=== PATIENT | female | born 1970 | race Caucasian/White ===

== ENCOUNTER 2020-11-18 08:52 | Emergency (ER) | payer BC, OTHER ==
[~2020-11-18] VITALS: Ht 157.5 cm; Wt 73.4 kg
[~2020-11-18 08:52] MED LIST: BUPR150T8 PO; CETI-90 PO; CHOL10002 PO; CYAN100019 PO; DIPH25CA83 PO; FLUO20CA39 PO; HYDR-4353 PO; IBUP-1984 PO; OMEG1CAP PO; OMEP20CA15 PO
[2020-11-18] MEDS ORDERED: ketorolac tromethamine 15mg/ml inj. IV ONE (09:25)
[2020-11-18 09:54] LABS: BASOPHILS % (AUTO) 0.3 % (0-1); EOSINOPHILS # (AUTO) 0.3 X10'3 (0-0.9); EOSINOPHILS % (AUTO) 3.7 % (0-6); HEMATOCRIT 39.6 % (35.0-45.0); HEMOGLOBIN 13.6 g/dl (12.0-16.0); LYMPHOCYTES # (AUTO) 1.4 X10'3 (1.1-4.8); LYMPHOCYTES % (AUTO) 19.5 % (21-51); MEAN CORPUSCULAR HEMOGLOBIN 31.8 PG (27.0-31.0); MEAN CORPUSCULAR HGB CONC 34.4 g/dL (33.0-36.5); MEAN CORPUSCULAR VOLUME 92.4 FL (78-98); MEAN PLATELET VOLUME 8.3 FL (7.4-10.4); MONOCYTES # (AUTO) 0.5 X10'3 (0-0.9); MONOCYTES % (AUTO) 6.9 % (2-12); NEUTROPHILS % (AUTO) 69.6 % (42-75); PLATELET COUNT 174 X10'3 (140-440); RED BLOOD COUNT 4.29 X10'6 (4.20-5.60); RED CELL DISTRIBUTION WIDTH 12.6 % (11.5-14.5); WHITE BLOOD COUNT 7.1 X10'3 (4.5-11.0)
[2020-11-18 10:08] LABS: PARTIAL THROMBOPLASTIN TIME 27 SECONDS (22-32)
[2020-11-18] MEDS ORDERED: ketorolac tromethamine 15mg/ml inj. IM ONE (10:10)
[2020-11-18 10:14] LABS: CLARITY,URINE SLIGHTLY CLOUDY (Clear); COLOR,URINE YELLOW (Yellow); GLUCOSE, URINE NEGATIVE (Neg); KETONES,URINE NEGATIVE (Neg); LEUKOCYTE ESTERASE ,URINE NEGATIVE (Neg); NITRITES, URINE NEGATIVE (Neg); OCCULT BLOOD,URINE LARGE (Neg); PROTEIN,URINE NEGATIVE (Neg); UROBILINOGEN,URINE 0.2 E.U/dL (0.2-1.0)
[2020-11-18 10:15] LABS: ALANINE AMINOTRANSFERASE 15 U/L (12-78); ALBUMIN 3.5 G/DL (3.4-5.0); ALBUMIN/GLOBULIN RATIO 1.1 (1.1-1.5); ALKALINE PHOSPHATASE 49 IU/L (46-116); ANION GAP 10 (8-16); ASPARTATE AMINO TRANSFERASE 11 U/L (10-37); BILIRUBIN,TOTAL 0.4 MG/DL (0.1-1.0); BLOOD UREA NITROGEN 8 MG/DL (7-18); BUN/CREATININE RATIO 12.7 (6.6-38.0); CALCIUM 8.2 MG/DL (8.5-10.1); CHLORIDE 104 MMOL/L (99-107); CREATININE 0.63 MG/DL (0.40-0.90); GLUCOSE 98 MG/DL (70-104); LIPASE 75 U/L (73-393); POTASSIUM 3.9 MMOL/L (3.5-5.1); SODIUM 139 MMOL/L (135-145); TOTAL CARBON DIOXIDE 25.4 MMOL/L (24-32); TOTAL PROTEIN 6.8 G/DL (6.4-8.2); eGFR > 90 ML/MIN
[2020-11-18 10:19] LABS: UA COLLECTION TYPE CLN CATCH MIDSTREAM
[2020-11-18 10:22] LABS: BACTERIA,URINE 1+ /HPF (Neg); MUCUS STRANDS FEW /LPF (Neg); RBC,URINE 0-2 /HPF (0-2); SQUAMOUS EPITHELIAL CELL,UR MANY /LPF (FEW); WBC,URINE 0-4 /HPF (0-4)
[2020-11-18] MEDS ORDERED: HYDR-3965 PO (12:17)
[2020-11-18] MEDS ORDERED: ONDA4TAB6 PO ×2 (12:17→12:36)
[2020-11-18] MEDS ORDERED: IBUP-1984 PO (12:36)
[2020-11-18 12:56] VITALS: BP 126/81
== END 2020-11-18 12:59 | disposition home or self-care (01) ==
LOC: ER 08:53
DX: K57.90 Diverticulosis of intestine, part unspecified, without perforation or abscess without bleeding (principal); Z91.010 Allergy to peanuts; Z91.040 Latex allergy status; Z88.5 Allergy status to narcotic agent
CPT/HCPCS: 36415; 71045; 74176; 80053; 81001; 83690; 85025; 85610; 85730; 93005; 96372; 99285; J1885